=== PATIENT | male | born 1990 | race Caucasian/White ===

== ENCOUNTER 2020-11-27 03:07 | Emergency (ER) | payer OTHER ==
[~2020-11-27] VITALS: Ht 172.7 cm; Wt 81.7 kg
[2020-11-27 05:22] VITALS: BP 129/93
== END 2020-11-27 05:23 | disposition home or self-care (01) ==
LOC: M.ERS 03:07
DX: S51.811A Laceration without foreign body of right forearm, initial encounter (principal); Z88.1 Allergy status to other antibiotic agents; Z88.0 Allergy status to penicillin; W22.8XXA Striking against or struck by other objects, initial encounter; Y93.89 Activity, other specified; Y92.89 Other specified places as the place of occurrence of the external cause; Y99.8 Other external cause status